=== PATIENT | female | born 2000 | race Caucasian/White ===

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

== ENCOUNTER 2022-01-15 07:08 | Outpatient (CLI) | payer OTHER ==
--- NOTE | 2022-01-15 13:19 | Ultrasound Report ---
PROCEDURE: Abdomen Complete INDICATIONS: ABD PAIN, PELVIC PAIN TECHNIQUE: Real-time scanning was performed of the abdominal and retroperitoneal organs, with image documentatio n. COMPARISON: CT abdomen/pelvis 11/12/2019 FINDINGS: Liver: Liver is normal in size and diffusely increased in echogenicity. Gallbladder: The gallbladder appears normal without gallstones or gallbladder wall thickening. There is no pericholecystic fluid. Sonographic Donnelly sign is negative. Biliary ducts: Intrahepatic bile ducts are non-dilated. Extrahepatic bile duct caliber measures 3.9 mm. Normal is 6-7 mm or less in diameter, or 10 mm or less post-cholecystectomy. Pancreas: Visualized portions of the pancreas are sonographically normal. Spleen: Spleen is normal in size and homogeneous in echotexture. Kidneys: Kidneys are normal in size and echotexture. Right kidney measures 10.6 cm long; left kidne y measures 11 cm long. No hydronephrosis or nephrolithiasis. No solid masses. Aorta: Visualized aorta is normal in caliber at less than 3 cm. Iliacs: Proximal common iliac arteries are normal in caliber at less than 2.5 cm. IVC: Intrahepatic inferior vena cava is patent. Miscellaneous: No free abdominal fluid. IMPRESSION: Diffusely increased hepatic echogenicity is nonspecific, but most commonly encountered in the setting of hepatic steatosis. However, other causes of hepatocellular disease are not excluded. Recommend cl inical correlation. Reviewed by: Danny Chiu MD on 01/15/2022 1:17 PM PDT Approved by: Danny Chiu MD on 01/15/2022 1:17 PM PDT Station ID: [id number]
--- NOTE | 2022-01-15 16:30 | Ultrasound Report ---
PROCEDURE: Pelvic Complete INDICATIONS: ABD PAIN, PELVIC PAIN TECHNIQUE: 11/12/2019 COMPARISON: None. FINDINGS: Normal size and appearance of the uterus. No uterine mass. Endometrium measures 5 mm in thickness. Dougie th ovaries normal in size and appearance. No ovarian or adnexal mass. IMPRESSION: Normal pelvic ultrasound. Reviewed by: Lexa Merrill MD on 01/15/2022 4:29 PM PDT Approved by: Lexa Merrill MD on 01/15/2022 4:29 PM PDT Station ID: [id number]
== END 2022-01-15 07:09 | disposition home or self-care (01) ==
LOC: DI 07:08
PROVIDERS: ATTEND Nurse Practitioner Family
DX: R10.84 Generalized abdominal pain (principal); R10.2 Pelvic and perineal pain

== ENCOUNTER 2022-02-04 11:46 | Outpatient (CLI) | payer OTHER | END 2022-02-04 11:47 | disposition critical access hospital (66) | LOC: EMS 11:46 | DX: T39.391A Poisoning by other nonsteroidal anti-inflammatory drugs [NSAID], accidental (unintentional), initial encounter (principal); R53.83 Other fatigue; R11.0 Nausea | CPT/HCPCS: A0425; A0429 ==

== ENCOUNTER 2022-02-25 08:00 | Outpatient (CLI) | payer OTHER ==
[2022-02-25 12:18] LABS: BASOPHILS # (AUTO) 0.1 10^3/uL (0.0-0.1); BASOPHILS % (AUTO) 0.7 %; EOSINOPHILS # (AUTO) 0.1 10^3/uL (0.0-0.7); EOSINOPHILS % (AUTO) 1.6 %; HCT - HEMATOCRIT 41.3 % (37.0-47.0); HGB - HEMOGLOBIN 13.1 g/dL (12.0-16.0); LYMPHOCYTES # (AUTO) 2.5 10^3/uL (1.5-3.5); LYMPHOCYTES % (AUTO) 28.5 %; MEAN CORPUSCULAR HEMOGLOBIN 26.3 pg (27.0-31.0); MEAN CORPUSCULAR HGB CONC 31.7 g/dL (32.0-36.0); MEAN CORPUSCULAR VOLUME 82.8 fL (81.0-99.0); MEAN PLATELET VOLUME 10.7 fL (7.9-10.8); MONOCYTES # (AUTO) 0.4 10^3/uL (0.0-1.0); NEUTROPHILS # (AUTO) 5.5 10^3/uL (1.5-6.6); PLT - PLATELET COUNT 323 10^3/uL (130-450); RED BLOOD COUNT 4.99 10^6/uL (4.20-5.40); RED CELL DISTRIBUTION WIDTH 12.5 % (12.0-15.0); WHITE BLOOD COUNT 8.6 x10^3/uL (4.8-10.8)
[2022-02-25 12:26] LABS: CALCIUM 9.4 mg/dL (8.5-10.3); CARBON DIOXIDE - CO2 24 mmol/L (21-32); CHLORIDE 103 mmol/L (101-111); GLUCOSE 91 mg/dL (70-100); POTASSIUM 3.9 mmol/L (3.5-5.0); SODIUM 137 mmol/L (135-145)
[2022-02-25 12:55] LABS: ALBUMIN 4.1 g/dL (3.2-5.5); ALBUMIN/GLOBULIN RATIO 1.1 (1.0-2.2); ALKALINE PHOSPHATASE 45 IU/L (42-121); ALT ALANINE AMINOTRANSFERASE 16 IU/L (10-60); AST ASPARTATE AMINOTRANSFERASE 17 IU/L (10-42); BILIRUBIN,TOTAL 0.4 mg/dL (0.2-1.0); BUN - BLOOD UREA NITROGEN 13 mg/dL (6-20); CREATININE 0.6 mg/dL (0.4-1.0); GFR - MDRD 129 (>89); TOTAL PROTEIN 7.9 g/dL (6.7-8.2)
[2022-02-25 14:42] LABS: CRP - C-REACTIVE PROTEIN < 1.0 mg/dL (0-1.0)
== END 2022-02-25 23:59 | disposition home or self-care (01) ==
LOC: LAB.N 08:00
PROVIDERS: ATTEND Registered Nurse
DX: M79.661 Pain in right lower leg (principal); M25.561 Pain in right knee
CPT/HCPCS: 36415; 80053; 85025; 86140

== ENCOUNTER 2022-02-25 08:00 | Outpatient (CLI) | payer OTHER ==
--- NOTE | 2022-02-25 13:16 | XRAY Report ---
PROCEDURE: Knee 3 View RT INDICATIONS: R KNEE PX TECHNIQUE: 3 views of the right knee(s) were acquired. COMPARISON: None. FINDINGS: Bones: No fractures or dislocations. No suspicious bony lesions. Soft tissues: No joint effusion. No suspicious soft tissue calcifications. IMPRESSION: Negative right knee Reviewed by: Bryant Bae MD on 02/25/2022 1:14 PM PST Approved by: Bryant Bae MD on 02/25/2022 1:14 PM PST Station ID: [id number]
== END 2022-02-25 23:59 | disposition home or self-care (01) ==
LOC: DI.N 08:00
PROVIDERS: ATTEND Registered Nurse
DX: M25.561 Pain in right knee (principal); R60.0 Localized edema

== ENCOUNTER 2022-09-14 18:40 | Emergency (ER) | payer MEDICAID, OTHER ==
[2022-09-14] MEDS ORDERED: SODIUM CHLORIDE 0.9% 1,000 ML IV STA (19:05)
[2022-09-14] MEDS ORDERED: ONDANSETRON 4 MG/2 ML VIAL IVP STA (19:05)
--- NOTE | 2022-09-14 19:07 | ED Physician Documentation ---
PD HPI ABD PAIN - Stated complaint Stated Complaint: VOMITING/DIZZY - Chief complaint Chief Complaint: Abd Pain - History obtained from History obtained from: Patient - Additional information Additional information: Previously healthy 22-year-old woman started vomiting after breakfast this morning. She said her coffee tasted funny but she felt a little bad even before drinking that. She has been vomiting ever since with some upper abdominal pain. No known sick contacts, fevers, recent travel, or diarrhea. States no possibility of . 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 : None HEENT: None Psych: Depression, Anxiety Musculoskeletal: None Derm: None - Past Surgical History Past Surgical History: No - Present Medications Home Medications: Ambulatory Orders Medication Instructions Recorded Confirmed Cetirizine [ZyrTEC] 10 mg PO DAILY #30 tablet 04/13/19 EPINEPHrine [Epinephrine] 0.3 mg IJ ONCE PRN #1 auto.injct 04/13/19 predniSONE [Prednisone] 40 mg PO DAILY #6 tablet 04/13/19 Lidocaine Viscous 2% [Xylocaine 15 ml PO Q4H PRN #100 ml 11/13/19 Viscous 2%] Ondansetron Odt [Zofran] 4 mg TL Q6H PRN #10 tablet 09/14/22 - Allergies Allergies/Adverse Reactions: Allergies Allergy/AdvReac Type Severity Reaction Status Date / Time sertraline [From Zoloft] AdvReac Diaphoresis Verified 02/04/22 12:16 - Social History Does the pt smoke?: No Smoking Status: Never smoker Does the pt drink ETOH?: No Does the pt have substance abuse?: No - Immunizations Immunizations are current?: Yes - POLST Patient has POLST: No PD ED PE NORMAL - Vitals Vital signs reviewed: Yes - General General: Alert and oriented X 3, No acute distress - Abdomen Abdomen: Normal bowel sounds, Soft, Non tender - Neuro Neuro: Alert and oriented X 3, Normal speech Results - Vitals Vitals: Vital Signs - 24 hr 09/14/22 18:57 Temperature 36.7 C Heart Rate 121 H Respiratory 18 Rate Blood Pressure 132/87 H O2 Saturation 98 Oxygen O2 Source Room air - Labs Labs: Laboratory Tests 09/14/22 09/14/22 19:14 19:27 Sodium 139 Potassium 3.5 Chloride 107 Carbon Dioxide 24 Anion Gap 8.0 BUN 9 Creatinine 0.6 Estimated GFR (MDRD) 127 Glucose 103 H Calcium 9.3 Total Bilirubin 0.5 AST 15 ALT 15 Alkaline Phosphatase 48 Total Protein 8.4 H Albumin 4.3 Globulin 4.1 Albumin/Globulin Ratio 1.0 Lipase 29 Urine HCG, Qual NEGATIVE PD Medical Decision Making - ED course ED course: 22-year-old with vomiting alone, benign examination. Labs showing normal CMP and negative test. After the administration of 1 L of normal saline and 4 mg of Zofran she felt much better, passed a p.o. challenge. On recheck she was nontender at 8:45 PM. Given close return precautions. Departure - Departure Disposition: 01 Home, Self Care Clinical Impression: Vomiting Condition: Good Record reviewed to determine appropriate education?: Yes Instructions: ED Nausea Vomiting Prescriptions: Ondansetron Odt [Zofran] 4 mg TL Q6H PRN #10 tablet PRN Reason: Nausea / Vomiting Comments: Return tomorrow afternoon if not better, anytime for new or worsening symptoms.
[2022-09-14 19:32] LABS: ALBUMIN 4.3 g/dL (3.2-5.5); BILIRUBIN,TOTAL 0.5 mg/dL (0.2-1.0); CALCIUM 9.3 mg/dL (8.5-10.3); CREATININE 0.6 mg/dL (0.4-1.0); POTASSIUM 3.5 mmol/L (3.5-5.0); TOTAL PROTEIN 8.4 g/dL (6.7-8.2)
[2022-09-14 19:48] LABS: HCG UR QUAL NEGATIVE
[2022-09-14] MEDS ORDERED: ONDANSETRON ODT 4 MG Prepack 2 TL STA (20:43)
[2022-09-14 20:55] VITALS: BP 109/73
== END 2022-09-14 20:55 | disposition home or self-care (01) ==
LOC: ED 18:40
DX: R11.10 Vomiting, unspecified (principal)
CPT/HCPCS: 36415; 80053; 81025; 83690; 96374; 99283

== ENCOUNTER 2022-11-04 08:00 | Outpatient (CLI) | payer MEDICAID | END 2022-11-04 23:59 | disposition home or self-care (01) | LOC: LAB.N 08:00 | PROVIDERS: ATTEND Physician Assistant Medical | DX: N30.00 Acute cystitis without hematuria (principal) | CPT/HCPCS: 87086 ==

== ENCOUNTER 2022-11-26 16:00 | Outpatient (CLI) | payer MEDICAID ==
[2022-11-26 20:44] LABS: BASOPHILS # (AUTO) 0.1 10^3/uL (0.0-0.1); BASOPHILS % (AUTO) 0.6 %; EOSINOPHILS # (AUTO) 0.1 10^3/uL (0.0-0.7); EOSINOPHILS % (AUTO) 1.6 %; HCT - HEMATOCRIT 41.7 % (37.0-47.0); LYMPHOCYTES # (AUTO) 2.1 10^3/uL (1.5-3.5); LYMPHOCYTES % (AUTO) 25.3 %; MEAN CORPUSCULAR HEMOGLOBIN 26.3 pg (27.0-31.0); MEAN CORPUSCULAR HGB CONC 31.2 g/dL (32.0-36.0); MEAN CORPUSCULAR VOLUME 84.4 fL (81.0-99.0); MEAN PLATELET VOLUME 11.1 fL (7.9-10.8); MONOCYTES # (AUTO) 0.4 10^3/uL (0.0-1.0); MONOCYTES % (AUTO) 5.1 %; NEUTROPHILS # (AUTO) 5.5 10^3/uL (1.5-6.6); NEUTROPHILS % (AUTO) 67.2 %; PLT - PLATELET COUNT 363 10^3/uL (130-450); RED BLOOD COUNT 4.94 10^6/uL (4.20-5.40); RED CELL DISTRIBUTION WIDTH 12.1 % (12.0-15.0); WHITE BLOOD COUNT 8.2 x10^3/uL (4.8-10.8)
[2022-11-26 20:53] LABS: ESTIMATED AVERAGE GLUCOSE 103 mg/dL (70-100); HEMOGLOBIN A1c% 5.2 % (4.27-6.07)
[2022-11-26 21:28] LABS: ALBUMIN 4.3 g/dL (3.2-5.5); ALBUMIN/GLOBULIN RATIO 1.1 (1.0-2.2); BILIRUBIN,TOTAL 0.3 mg/dL (0.2-1.0); CALCIUM 8.9 mg/dL (8.5-10.3); CREATININE 0.7 mg/dL (0.4-1.0); POTASSIUM 3.7 mmol/L (3.5-5.0); TOTAL PROTEIN 8.2 g/dL (6.7-8.2)
[2022-11-26 23:00] LABS: CRP - C-REACTIVE PROTEIN 1.4 mg/dL (<0.5)
== END 2022-11-26 16:15 | disposition home or self-care (01) ==
LOC: LAB.N 16:00
PROVIDERS: ATTEND Registered Nurse
DX: R10.9 Unspecified abdominal pain (principal); R11.2 Nausea with vomiting, unspecified
CPT/HCPCS: 36415; 80053; 83036; 83690; 85025; 86140

== ENCOUNTER 2023-07-25 06:04 | Emergency (ER) | payer MEDICAID ==
[2023-07-25] MEDS ORDERED: ONDANSETRON 4 MG/2 ML VIAL ONE (06:47)
[2023-07-25] MEDS ORDERED: cefTRIAXone 1 GM VIAL ONE (06:47)
[2023-07-25] MEDS: ACETAMINOPHEN 325 MG TABLET PO STA (06:49)
[2023-07-25] MEDS: cefTRIAXone 1 GM in SODIUM CHLORIDE 0.9% MINIBAG 100 ML IV STA (06:49)
--- NOTE | 2023-07-25 06:49 | ED Physician Documentation ---
History of Present Illness - Stated complaint Stated Complaint: FEVER - Chief complaint Chief Complaint: Fever - History obtained from History obtained from: Patient - Additonal information Additional information: 23yF with pmh 3 episodes of strep throat in the past year, utd on childhood vaccines to her knowledge, p/w fever/chills, sore throat, nbnb n/v and abdominal cramping X 2 days. patient had +strep swab in clinic and is on day 2 of keflex. denies cough, soa, cp, leg swelling, diarrhea. +urinary sx. 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 : None HEENT: None Psych: Depression, Anxiety Musculoskeletal: None Derm: None - Past Surgical History Past Surgical History: No - Present Medications Home Medications: Ambulatory Orders Medication Instructions Recorded Confirmed Cetirizine [ZyrTEC] 10 mg PO DAILY #30 tablet 04/13/19 EPINEPHrine [Epinephrine] 0.3 mg IJ ONCE PRN #1 auto.injct 04/13/19 Albuterol Sulf [Ventolin Hfa 1 inh INH Q4H PRN 07/25/23 07/25/23 Inhaler] Fluconazole 150 mg PO ONCE 07/25/23 07/25/23 Propranolol [Inderal] 10 mg PO TID 07/25/23 07/25/23 cephALEXin [Keflex] 500 mg PO Q6H 07/25/23 07/25/23 - Allergies Allergies/Adverse Reactions: Allergies Allergy/AdvReac Type Severity Reaction Status Date / Time sertraline [From Zoloft] AdvReac Diaphoresis Verified 07/25/23 06:22 - Social History Does the pt smoke?: No Smoking Status: Never smoker Does the pt drink ETOH?: No Does the pt have substance abuse?: No - Immunizations Immunizations are current?: Yes - POLST Patient has POLST: No PD ED PE NORMAL - Vitals Vital signs reviewed: Yes - General General: Alert and oriented X 3, No acute distress, Well developed/nourished - HEENT HEENT: Atraumatic, PERRL, EOMI, Moist mucous membranes, Pharynx benign - Neck Neck: Supple, no meningeal sign - Cardiac Cardiac: Other (tachycardic rate, regular rhythm) - Respiratory Respiratory: No respiratory distress, Clear bilaterally - Abdomen Abdomen: Non tender, Non distended - Back Back: No CVA TTP - Derm Derm: Normal color, Warm and dry Results - Vitals Vitals: Vital Signs - 24 hr 07/25/23 06:19 Temperature 38.2 C H Heart Rate 147 H Respiratory 19 Rate Blood Pressure 113/62 O2 Saturation 96 Oxygen O2 Source Room air - Labs Labs: Laboratory Tests 07/25/23 06:34 Urine Color YELLOW Urine Clarity CLEAR Urine pH 7.0 Ur Specific [place] 1.010 Urine Protein TRACE Urine Glucose (UA) NEGATIVE Urine Ketones TRACE Urine Occult Blood SMALL H Urine Nitrite NEGATIVE Urine Bilirubin NEGATIVE Urine Urobilinogen 1 (NORMAL) Ur Leukocyte Esterase NEGATIVE Urine RBC 0-5 Urine WBC 0-3 Ur Squamous Epith Cells FEW Squamous Urine Bacteria Rare Urine Culture Comments NOT INDICATED PD Medical Decision Making - ED course ED course: 23yF p/w n/v, fever, sore throat, urinary sx, and malaise. rvp, strep swab, cbc, abdominal panel, blood culture X2, lactic, u/a, hcg ordered. also ordered IVF, tylenol for fever, IV toradol for pain, zofran/pepcid for nausea, 30cc/kg bolus of IVF, and rocephin antibiotics in anticipation of treating uti and/or strep throat. plan to endorse to Dr. Hernandez at 7am shift change awaiting results and reevaluation of the patient. Departure - Departure Forms: PCP List
[2023-07-25 06:50] LABS: BASOPHILS % (AUTO) 0.3 %; HCT - HEMATOCRIT 37.1 % (37.0-47.0); HGB - HEMOGLOBIN 11.8 g/dL (12.0-16.0); LYMPHOCYTES # (AUTO) 0.3 10^3/uL (1.5-3.5); LYMPHOCYTES % (AUTO) 4.3 %; MEAN CORPUSCULAR HEMOGLOBIN 27.1 pg (27.0-31.0); MEAN CORPUSCULAR HGB CONC 31.8 g/dL (32.0-36.0); MEAN CORPUSCULAR VOLUME 85.3 fL (81.0-99.0); MEAN PLATELET VOLUME 10.4 fL (7.9-10.8); MONOCYTES # (AUTO) 0.2 10^3/uL (0.0-1.0); MONOCYTES % (AUTO) 3.4 %; NEUTROPHILS # (AUTO) 5.9 10^3/uL (1.5-6.6); NEUTROPHILS % (AUTO) 91.4 %; PLT - PLATELET COUNT 195 10^3/uL (130-450); RED BLOOD COUNT 4.35 10^6/uL (4.20-5.40); RED CELL DISTRIBUTION WIDTH 12.2 % (12.0-15.0); WHITE BLOOD COUNT 6.5 x10^3/uL (4.8-10.8)
[2023-07-25 06:50] LABS: BILIRUBIN,URINE NEGATIVE (NEGATIVE); GLUCOSE, URINE (UA) NEGATIVE (NEGATIVE); KETONES,URINE (UA) TRACE mg/dL (NEGATIVE); LEUKOCYTE ESTERASE, URINE NEGATIVE (NEGATIVE); NITRITE,URINE NEGATIVE (NEGATIVE); OCCULT BLOOD,URINE SMALL (NEGATIVE); PROTEIN,URINE TRACE mg/dL (NEGATIVE); UROBILINOGEN,URINE 1 (NORMAL) E.U./dL (NORMAL)
[2023-07-25] MEDS: SODIUM CHLORIDE 0.9% IV STA (06:51)
[2023-07-25 06:52] LABS: CLARITY,URINE CLEAR (CLEAR)
[2023-07-25 06:57] LABS: BACTERIA,URINE Rare /HPF (None Seen); RBC,URINE 0-5 /HPF (0-5); SQUAMOUS EPITHELIAL CELL,UR FEW Squamous (<= Few); WBC,URINE 0-3 /HPF (0-5)
[2023-07-25] MEDS: ONDANSETRON 4 MG/2 ML VIAL IVP STA (06:57)
[2023-07-25 07:05] LABS: RAPID STREP SCREEN Negative (Negative)
[2023-07-25 07:08] LABS: ALBUMIN 4.1 g/dL (3.2-5.5); ALBUMIN/GLOBULIN RATIO 1.1 (1.0-2.2); BILIRUBIN,TOTAL 0.8 mg/dL (0.2-1.0); CALCIUM 9.3 mg/dL (8.5-10.3); CREATININE 0.7 mg/dL (0.6-1.3); POTASSIUM 2.9 mmol/L (3.5-4.5); TOTAL PROTEIN 7.9 g/dL (6.4-8.9)
[2023-07-25 07:12] LABS: HCG UR QUAL NEGATIVE
[2023-07-25] MEDS: KETOROLAC 15 MG/ML VIAL IVP STA (07:21)
[2023-07-25] MEDS: FAMOTIDINE 20 MG/2 ML VIAL IVP STA (07:21)
[2023-07-25] MEDS: DEXAMETHASONE 10 MG/ML VIAL IVP STA (07:35)
[2023-07-25] MEDS: POTASSIUM CHLOR 10 MEQ/100 ML 10 MEQ/100 ML BAG IV ONE (07:35)
--- NOTE | 2023-07-25 07:47 | ED Physician Documentation ---
ED Addendum - Addendum Addendum: 07/25/23 07:44 23-year-old Lui Barros was left in my care this morning at shift change with a history of strep diagnosed yesterday persistent fever and vomiting. Patient arrives to the emergency department tachycardic and febrile with vomiting. She is treated with Zofran and IV saline as well as Rocephin and she continues to be a bit tachycardic this is somewhat improved from arrival. The patient is no longer nauseated. She has been on 1 day of Keflex prior to coming to the emergency department and today her rapid strep is negative. I still believe we are treating strep and I examined the patient's pharynx found 2+ cryptic and exudative tonsils. This is the patient's third round of strep in this calendar year. She has not treated her tonsils with gargling previously. She is given a dose of dexamethasone for the swelling. With persistent tachycardia I reevaluated the patient's volume status with POCUS and found a collapsing vessel measuring 8 mm. This represents a continued deficit of more than 2 L and she is administered additional IV saline. She is given a dose of dexamethasone as well. Her potassium is low at 2.9 she is given a potassium rider and 20 mill equivalents orally. At the conclusion of treatment the patient is feeling improved. 07/25/23 08:23 07/25/23 09:33 07/25/23 09:43 Departure - Departure Disposition: 01 Home, Self Care Clinical Impression: Strep pharyngitis, Dehydration, Hypokalemia Condition: Stable Instructions: ED Dehydration, ED Strep Pharyngitis Conf, ED Diet High Potassium Follow-Up: [facility] [Provider Group] Prescriptions: Ondansetron Odt [Zofran] 4 mg TL Q6H PRN #10 tablet PRN Reason: Nausea / Vomiting Comments: Lui, today it looks like you have strep pharyngitis and tonsils that are cryptic and exudative. We also found you to significantly dehydrated and we have provided IV hydration. Illnesses like strep will cause excessive fluid loss from increased respiration, fever and sweating. When you add vomiting into this the fluid loss can get extreme and this happened to you. I recommend adding in warm salt water gargle to your regimen to rinse bacteria and white blood cells off of your tonsils. This may help this to not recur. Finish your course of antibiotic. I have E scribed some medication for nausea to the pharmacy in [place]. Today your potassium was a bit low and we have replaced some of this. I have suggested a diet high in potassium and we have provided some instructions on this. Forms: PCP List, Activity restrictions
[2023-07-25 07:48] LABS: B. PARAPERTUSSIS- RESP PCR PAN NOT DETECTED; B. PERTUSSIS- RESP PCR PANEL NOT DETECTED; C. PNEUMONIAE- RESP PCR PANEL NOT DETECTED; CORONAVIRUS 229E-RESP PCR NOT DETECTED; CORONAVIRUS HKU1-RESP PCR NOT DETECTED; CORONAVIRUS NL63-RESP PCR NOT DETECTED; CORONAVIRUS OC43-RESP PCR NOT DETECTED; HUMAN METAPNEUMOVIRUS NOT DETECTED; INFLUENZA A- RESP PCR PANEL NOT DETECTED; INFLUENZA B - RESP PCR PANEL NOT DETECTED; M. PNEUMONIAE- RESP PCR PANEL NOT DETECTED; PARAINFLUENZA VIRUS 1 NOT DETECTED; PARAINFLUENZA VIRUS 2 NOT DETECTED; PARAINFLUENZA VIRUS 3 NOT DETECTED; PARAINFLUENZA VIRUS 4 NOT DETECTED; RHINOVIRUS/ENTEROVIRUS NOT DETECTED; RSV- RESP PCR PANEL NOT DETECTED; SARS-CoV-2 -RESP PCR PANEL NOT DETECTED
[2023-07-25] MEDS: SODIUM CHLORIDE 0.9% 1,000 ML IV STA (07:52)
[2023-07-25] MEDS: POTASSIUM CHLORIDE 20 MEQ TABLET PO STA (07:54)
[2023-07-25 09:48] VITALS: BP 106/69; O2SAT 96
== END 2023-07-25 10:00 | disposition home or self-care (01) ==
LOC: ED 06:04
DX: J02.0 Streptococcal pharyngitis (principal); E86.0 Dehydration; E87.6 Hypokalemia; Z11.52 Encounter for screening for COVID-19
CPT/HCPCS: 36415; 80053; 81001; 81025; 83605; 85025; 87040; 87070; 87430; 87633; 96361; 96365; 96367; 96375; 99284; 99285; A9270; 87086

== ENCOUNTER 2023-10-14 08:15 | Outpatient (CLI) | payer MEDICAID ==
--- NOTE | 2023-10-14 12:54 | XRAY Report ---
PROCEDURE: Abdomen 1 V INDICATIONS: ABDOMINAL PAIN, LOWER TECHNIQUE: One view of the abdomen acquired. COMPARISON: CT abdomen pelvis 11/12/2019. FINDINGS: Surgical changes and devices: None. Bowel: Mild fecal residue. No dilated loops of small bowel identified. No gaseous distention of the s tomach. Soft tissues: No suspicious abdominal calcifications. Visualized solid organ contours appear normal in size. Bones: No suspicious bony lesions. IMPRESSION: Nonobstructive bowel gas pattern. Mild fecal residue. Reviewed by: Aníbal Silva MD on 10/14/2023 12:52 PM PDT Approved by: Aníbal Silva MD on 10/14/2023 12:52 PM PDT Station ID: [id number]
== END 2023-10-14 08:30 | disposition home or self-care (01) ==
LOC: DI.N 08:15
PROVIDERS: ATTEND Physician Assistant Medical
DX: R10.32 Left lower quadrant pain (principal); K59.00 Constipation, unspecified

== ENCOUNTER 2023-11-10 14:00 | Outpatient (CLI) | payer MEDICAID | END 2023-11-10 14:15 | disposition home or self-care (01) | LOC: LAB.N 14:00 | PROVIDERS: ATTEND Physician Assistant | DX: K52.9 Noninfective gastroenteritis and colitis, unspecified (principal) | CPT/HCPCS: 87045; 87046; 87427 ==